=== PATIENT | male | born 1940 ===

== ENCOUNTER 2021-07-20 12:30 | Outpatient (CLI) | payer MEDICARE, BC | END 2021-07-20 12:31 | disposition home or self-care (01) | LOC: CSHRAD 12:30 | PROVIDERS: ATTEND Nurse Practitioner | DX: Z95.810 Presence of automatic (implantable) cardiac defibrillator (principal) | CPT/HCPCS: 71046 ==

== ENCOUNTER 2021-08-15 08:22 | Emergency (ER) | payer MEDICARE, BC | END 2021-08-15 10:40 | disposition home or self-care (01) | LOC: CSHERS 08:22 | DX: I82.622 Acute embolism and thrombosis of deep veins of left upper extremity (principal); I10 Essential (primary) hypertension; I48.91 Unspecified atrial fibrillation; E78.5 Hyperlipidemia, unspecified ==